=== PATIENT | male | born 1950 | race Caucasian/White ===

== ENCOUNTER 2020-11-21 04:43 | Inpatient (IN) | payer OTHER ==
[2020-11-21] MEDS ORDERED: ACETAMINOPHEN 1000 MG/100 ML VIAL (NON FORMULARY) IVPB ONE (05:53)
[2020-11-21] MEDS ORDERED: SODIUM CHLORIDE 0.9% 500 ML INFUS.BAG IV ONE (05:53)
[2020-11-21] MEDS ORDERED: ACETAMINOPHEN INJECTION 100 ML IVPB ONE (06:11)
[2020-11-21 06:44] LABS: VENOUS BASE EXCESS -5.1 mmol/L (-2-2); VENOUS O2 SATURATION 37.6 % (70-80); VENOUS PCO2 41.1 mmHg (38-52); VENOUS PH 7.319 (7.310-7.410)
[2020-11-21 06:51] LABS: BASO % 0.7 % (0-2.0); HEMATOCRIT 42.3 % (35.4-49); HEMOGLOBIN 14.7 GM/dL (11.7-16.9); LYMPH % 5.5 % (8-40); MCH 31.3 pg (25.7-33.7); MCHC 34.7 g/dl (32.0-35.9); MEAN CELL VOLUME 90.1 fl (80-96); MEAN PLT VOLUME 8.1 fl (7.5-11.1); MONO % 5.4 % (3.8-10.2); NEUT % 88.4 % (42.8-82.8); PLATELET COUNT 299 K/MM3 (134-434); RBC 4.69 M/mm3 (4.00-5.60); RDW 13.4 % (11.9-15.9); WHITE BLOOD COUNT 6.1 K/mm3 (4.0-10.0)
[2020-11-21 06:57] LABS: INR 1.25 (0.83-1.09); PROTHROMBIN TIME (PATIENT) 15.3 SEC (9.7-13.0)
[2020-11-21 07:00] LABS: ACTIVATED PTT 29.2 SECONDS (25.2-36.5)
[2020-11-21 07:03] LABS: POTASSIUM 3.6 mmol/L (3.5-5.1)
[2020-11-21 07:05] LABS: ALBUMIN 2.9 g/dl (3.4-5.0); BLOOD UREA NITROGEN 9.3 mg/dL (7-18); CALCIUM 8.1 mg/dL (8.5-10.1)
[2020-11-21 07:08] LABS: BILIRUBIN,DIRECT 0.3 mg/dL (0.0-0.2)
[2020-11-21 07:09] LABS: CREATININE 0.9 mg/dL (0.55-1.3)
[2020-11-21 07:10] LABS: BILIRUBIN,TOTAL 0.9 mg/dL (0.2-1); TOT PROT 6.8 g/dl (6.4-8.2)
[2020-11-21] MEDS ORDERED: DEXAMETHASONE SOD PHOSPHATE 20 MG/5 ML VIAL IVPB ONE (09:57)
[2020-11-21] MEDS ORDERED: ENOXAPARIN NA (PORCINE) 40 MG/0.4 ML DISP.SYRIN SQ SCH ×2 (10:00→22:00)
[2020-11-21] MEDS ORDERED: ENOXAPARIN NA (PORCINE) 40 MG/0.4 ML DISP.SYRIN SQ ONE (10:49)
[2020-11-21] MEDS ORDERED: DEXAMETHASONE SOD PHOSPHATE 10 MG/1 ML VIAL ONE (10:49)
[2020-11-21] MEDS: DEXAMETHASONE SOD PHOSPHATE 4 MG/1 ML VIAL IVPB SCH (10:59)
[2020-11-21] MEDS ORDERED: REMDESIVIR 200 MG in SODIUM CHLORIDE 210 ML IVPB ONE (15:00)
[2020-11-21] MEDS: ALBUTEROL SO4 HFA INHALER IH SCH (21:16)
[2020-11-21] MEDS: BUDESONIDE/FORMETEROL FUMARATE 160/4.5 mcg INHALER IH SCH (21:31)
[2020-11-22] MEDS: ALBUTEROL SO4 HFA INHALER IH SCH ×5 (07:11→22:03)
[2020-11-22] MEDS: ENOXAPARIN NA (PORCINE) 100 MG/1 ML DISP.SYRIN SQ SCH ×2 (09:42→23:15)
[2020-11-22] MEDS: BUDESONIDE/FORMETEROL FUMARATE 160/4.5 mcg INHALER IH SCH ×2 (09:43→23:16)
[2020-11-22] MEDS: DEXAMETHASONE SOD PHOSPHATE 4 MG/1 ML VIAL IVPB SCH (09:43)
[2020-11-22 09:52] LABS: BASO % 0.2 % (0-2.0); HEMATOCRIT 37.1 % (35.4-49); HEMOGLOBIN 12.7 GM/dL (11.7-16.9); LYMPH % 5.4 % (8-40); MCH 31.3 pg (25.7-33.7); MCHC 34.3 g/dl (32.0-35.9); MEAN CELL VOLUME 91.2 fl (80-96); MEAN PLT VOLUME 8.6 fl (7.5-11.1); MONO % 3.9 % (3.8-10.2); NEUT % 90.5 % (42.8-82.8); PLATELET COUNT 288 K/MM3 (134-434); RBC 4.07 M/mm3 (4.00-5.60); RDW 13.7 % (11.9-15.9); WHITE BLOOD COUNT 7.7 K/mm3 (4.0-10.0)
[2020-11-22 10:33] LABS: ALBUMIN 2.2 g/dl (3.4-5.0); MAGNESIUM 2.6 mg/dL (1.8-2.4)
[2020-11-22 10:36] LABS: CREATININE 0.5 mg/dL (0.55-1.3); PHOSPHOROUS 2.4 mg/dL (2.5-4.9)
[2020-11-22 10:37] LABS: BILIRUBIN,TOTAL 1.4 mg/dL (0.2-1); TOT PROT 5.7 g/dl (6.4-8.2)
[2020-11-22] MEDS: LACTATED RINGERS SOLUTION 1,000 ML/1,000 ML INFUS.BAG IV SCH (12:34)
[2020-11-22] MEDS ORDERED: REMDESIVIR 100 MG in SODIUM CHLORIDE 230 ML IVPB SCH (15:00)
[2020-11-23] MEDS: LACTATED RINGERS SOLUTION 1,000 ML/1,000 ML INFUS.BAG IV SCH (00:57)
[2020-11-23] MEDS: ALBUTEROL SO4 HFA INHALER IH SCH ×4 (08:41→21:15)
[2020-11-23 09:01] LABS: ALLENS TEST POSITIVE; ARTERIAL BLD GAS O2 SATURATION 97.4 mmHg (95-98); ARTERIAL BLOOD GAS PO2 86.5 mmHg (80-100); ARTERIAL BLOOD GAS pH 7.504 (7.350-7.450)
[2020-11-23 09:13] LABS: HEMATOCRIT 39.9 % (35.4-49); HEMOGLOBIN 13.6 GM/dL (11.7-16.9); MCH 31.5 pg (25.7-33.7); MEAN CELL VOLUME 92.7 fl (80-96); MEAN PLT VOLUME 8.2 fl (7.5-11.1); PLATELET COUNT 313 K/MM3 (134-434); RBC 4.31 M/mm3 (4.00-5.60); RDW 13.4 % (11.9-15.9); WHITE BLOOD COUNT 9.3 K/mm3 (4.0-10.0)
[2020-11-23] MEDS: ENOXAPARIN NA (PORCINE) 100 MG/1 ML DISP.SYRIN SQ SCH ×2 (10:26→21:24)
[2020-11-23] MEDS: DEXAMETHASONE SOD PHOSPHATE 4 MG/1 ML VIAL IVPB SCH (10:26)
[2020-11-23] MEDS: BUDESONIDE/FORMETEROL FUMARATE 160/4.5 mcg INHALER IH SCH ×2 (10:27→21:24)
[2020-11-23 10:38] LABS: ALBUMIN 2.3 g/dl (3.4-5.0)
[2020-11-23 10:39] LABS: BLOOD UREA NITROGEN 11.2 mg/dL (7-18); MAGNESIUM 2.2 mg/dL (1.8-2.4)
[2020-11-23 10:41] LABS: CREATININE 0.6 mg/dL (0.55-1.3)
[2020-11-23 10:43] LABS: BILIRUBIN,TOTAL 0.8 mg/dL (0.2-1); TOT PROT 6.1 g/dl (6.4-8.2)
[2020-11-23] MEDS: FAMOTIDINE 20 MG/50 ML IVPB 20 MG/50 ML MG IVPB SCH ×2 (15:18→21:15)
[2020-11-23] MEDS: REMDESIVIR 100 MG in SODIUM CHLORIDE 230 ML IVPB SCH (16:00)
[2020-11-24 08:02] LABS: BASO % 0.2 % (0-2.0); HEMOGLOBIN 13.6 GM/dL (11.7-16.9); MCH 35.5 pg (25.7-33.7); MCHC 37.7 g/dl (32.0-35.9); MEAN CELL VOLUME 94.2 fl (80-96); MONO % 2.7 % (3.8-10.2); NEUT % 93.1 % (42.8-82.8); PLATELET COUNT 252 K/MM3 (134-434); RBC 3.82 M/mm3 (4.00-5.60); RDW 13.6 % (11.9-15.9); WHITE BLOOD COUNT 6.1 K/mm3 (4.0-10.0)
[2020-11-24 08:26] LABS: CALCIUM 8.2 mg/dL (8.5-10.1)
[2020-11-24 08:27] LABS: ALBUMIN 2.3 g/dl (3.4-5.0); BLOOD UREA NITROGEN 14.6 mg/dL (7-18); MAGNESIUM 2.4 mg/dL (1.8-2.4)
[2020-11-24 08:30] LABS: CREATININE 0.6 mg/dL (0.55-1.3); PHOSPHOROUS 2.2 mg/dL (2.5-4.9)
[2020-11-24 08:32] LABS: TOT PROT 6.3 g/dl (6.4-8.2)
[2020-11-24] MEDS: FAMOTIDINE 20 MG/50 ML IVPB 20 MG/50 ML MG IVPB SCH ×2 (09:22→21:58)
[2020-11-24] MEDS: ENOXAPARIN NA (PORCINE) 100 MG/1 ML DISP.SYRIN SQ SCH ×2 (09:22→21:57)
[2020-11-24] MEDS: BUDESONIDE/FORMETEROL FUMARATE 160/4.5 mcg INHALER IH SCH ×2 (09:28→21:58)
[2020-11-24] MEDS: ALBUTEROL SO4 HFA INHALER IH SCH ×4 (09:28→21:57)
[2020-11-24 09:35] LABS: PLATELET ESTIMATE NORMAL
[2020-11-24] MEDS ORDERED: DEXAMETHASONE SOD PHOSPHATE 4 MG/1 ML VIAL IVPB SCH (10:00)
[2020-11-24] MEDS: REMDESIVIR 100 MG in SODIUM CHLORIDE 230 ML IVPB SCH (14:19)
[2020-11-24] MEDS ORDERED: TOCILIZUMAB (ACTEMRA) 200 MG/10 ML VIAL IVPB ONE (15:25)
[2020-11-24] MEDS ORDERED: SODIUM CHLORIDE IVPB ONE (15:45)
[2020-11-24] MEDS ORDERED: TOCILIZUMAB IVPB ONE (15:45)
[2020-11-24] MEDS ORDERED: PT OWN MED DRAWER 7, Y5N ONE (16:46)
[2020-11-24] MEDS: DEXAMETHASONE SOD PHOSPHATE 4 MG/1 ML VIAL IVPB SCH (21:57)
[2020-11-25 09:04] LABS: HEMATOCRIT 33.7 % (35.4-49); HEMOGLOBIN 12.6 GM/dL (11.7-16.9); MCH 35.6 pg (25.7-33.7); MCHC 37.3 g/dl (32.0-35.9); MEAN CELL VOLUME 95.3 fl (80-96); PLATELET COUNT 232 K/MM3 (134-434); RBC 3.54 M/mm3 (4.00-5.60); RDW 13.5 % (11.9-15.9); WHITE BLOOD COUNT 5.6 K/mm3 (4.0-10.0)
[2020-11-25] MEDS: ENOXAPARIN NA (PORCINE) 100 MG/1 ML DISP.SYRIN SQ SCH ×2 (09:16→21:43)
[2020-11-25] MEDS: BUDESONIDE/FORMETEROL FUMARATE 160/4.5 mcg INHALER IH SCH ×2 (09:17→21:43)
[2020-11-25] MEDS: ALBUTEROL SO4 HFA INHALER IH SCH ×4 (09:17→21:20)
[2020-11-25] MEDS: DEXAMETHASONE SOD PHOSPHATE 4 MG/1 ML VIAL IVPB SCH ×2 (09:17→21:43)
[2020-11-25] MEDS: FAMOTIDINE 20 MG/50 ML IVPB 20 MG/50 ML MG IVPB SCH (09:17)
[2020-11-25 09:33] LABS: POTASSIUM 4.7 mmol/L (3.5-5.1)
[2020-11-25 09:45] LABS: ALBUMIN 2.2 g/dl (3.4-5.0); MAGNESIUM 2.8 mg/dL (1.8-2.4)
[2020-11-25 09:47] LABS: CREATININE 0.6 mg/dL (0.55-1.3)
[2020-11-25 09:48] LABS: BILIRUBIN,TOTAL 0.7 mg/dL (0.2-1); PHOSPHOROUS 2.5 mg/dL (2.5-4.9)
[2020-11-25 09:49] LABS: TOT PROT 6.1 g/dl (6.4-8.2)
[2020-11-25 09:57] LABS: BLOOD UREA NITROGEN 18.6 mg/dL (7-18)
[2020-11-25] MEDS: REMDESIVIR 100 MG in SODIUM CHLORIDE 230 ML IVPB SCH (15:18)
[2020-11-25] MEDS ORDERED: POLYETHYLENE GLYCOL 3350 119 GM BTL PO ONE (16:01)
[2020-11-25 19:08] LABS: HEP B CORE AB, TOT Negative (Negative)
[2020-11-25] MEDS: FAMOTIDINE 20 MG TABLET PO SCH (21:43)
[2020-11-26 08:00] LABS: POTASSIUM 4.7 mmol/L (3.5-5.1)
[2020-11-26 08:07] LABS: BLOOD UREA NITROGEN 21.8 mg/dL (7-18); CALCIUM 7.8 mg/dL (8.5-10.1)
[2020-11-26 08:08] LABS: ALBUMIN 2.2 g/dl (3.4-5.0)
[2020-11-26 08:11] LABS: CREATININE 0.7 mg/dL (0.55-1.3)
[2020-11-26 08:12] LABS: BILIRUBIN,TOTAL 0.9 mg/dL (0.2-1); TOT PROT 6.3 g/dl (6.4-8.2)
[2020-11-26] MEDS: ALBUTEROL SO4 HFA INHALER IH SCH ×4 (08:30→21:24)
[2020-11-26 09:07] LABS: HEMATOCRIT 37.5 % (35.4-49); HEMOGLOBIN 12.8 GM/dL (11.7-16.9); MCH 30.7 pg (25.7-33.7); MCHC 34.2 g/dl (32.0-35.9); MEAN CELL VOLUME 89.9 fl (80-96); MEAN PLT VOLUME 8.5 fl (7.5-11.1); PLATELET COUNT 280 K/MM3 (134-434); RBC 4.18 M/mm3 (4.00-5.60); RDW 13.6 % (11.9-15.9); WHITE BLOOD COUNT 9.7 K/mm3 (4.0-10.0)
[2020-11-26] MEDS ORDERED: PT OWN MED DRAWER 7, Y5N ONE (10:12)
[2020-11-26] MEDS: FAMOTIDINE 20 MG TABLET PO SCH ×2 (10:33→22:10)
[2020-11-26] MEDS: DOCUSATE SODIUM 100 MG CAPSULE (FP) PO SCH ×2 (10:34→22:09)
[2020-11-26] MEDS: ENOXAPARIN NA (PORCINE) 100 MG/1 ML DISP.SYRIN SQ SCH ×2 (10:34→22:09)
[2020-11-26] MEDS: DEXAMETHASONE SOD PHOSPHATE 4 MG/1 ML VIAL IVPB SCH ×2 (10:35→22:09)
[2020-11-26] MEDS: BUDESONIDE/FORMETEROL FUMARATE 160/4.5 mcg INHALER IH SCH ×2 (10:36→22:10)
[2020-11-26] MEDS: POLYETHYLENE GLYCOL 3350 119 GM BTL PO SCH ×2 (10:36→11:02)
[2020-11-27 07:13] LABS: HEMATOCRIT 38.8 % (35.4-49); MCH 34.2 pg (25.7-33.7); MCHC 36.2 g/dl (32.0-35.9); MEAN CELL VOLUME 94.4 fl (80-96); MEAN PLT VOLUME 8.3 fl (7.5-11.1); PLATELET COUNT 287 K/MM3 (134-434); RBC 4.11 M/mm3 (4.00-5.60); RDW 13.5 % (11.9-15.9); WHITE BLOOD COUNT 10.6 K/mm3 (4.0-10.0)
[2020-11-27 07:37] LABS: POTASSIUM 4.8 mmol/L (3.5-5.1)
[2020-11-27 07:39] LABS: ALBUMIN 2.4 g/dl (3.4-5.0); BLOOD UREA NITROGEN 20.8 mg/dL (7-18); CALCIUM 8.2 mg/dL (8.5-10.1)
[2020-11-27 07:43] LABS: CREATININE 0.6 mg/dL (0.55-1.3)
[2020-11-27 07:44] LABS: BILIRUBIN,TOTAL 0.7 mg/dL (0.2-1); TOT PROT 6.4 g/dl (6.4-8.2)
[2020-11-27] MEDS: ALBUTEROL SO4 HFA INHALER IH SCH ×3 (09:03→17:09)
[2020-11-27] MEDS: DOCUSATE SODIUM 100 MG CAPSULE (FP) PO SCH ×2 (10:30→21:05)
[2020-11-27] MEDS: ENOXAPARIN NA (PORCINE) 100 MG/1 ML DISP.SYRIN SQ SCH ×2 (10:30→21:05)
[2020-11-27] MEDS: FAMOTIDINE 20 MG TABLET PO SCH ×2 (10:31→21:05)
[2020-11-27] MEDS: DEXAMETHASONE SOD PHOSPHATE 4 MG/1 ML VIAL IVPB SCH ×2 (10:31→21:05)
[2020-11-27] MEDS: BUDESONIDE/FORMETEROL FUMARATE 160/4.5 mcg INHALER IH SCH ×2 (10:34→21:06)
[2020-11-27] MEDS: POLYETHYLENE GLYCOL 3350 119 GM BTL PO SCH (10:57)
[2020-11-28 06:56] LABS: HEMATOCRIT 43.2 % (35.4-49); HEMOGLOBIN 15.3 GM/dL (11.7-16.9); MCH 32.8 pg (25.7-33.7); MCHC 35.5 g/dl (32.0-35.9); MEAN CELL VOLUME 92.5 fl (80-96); MEAN PLT VOLUME 7.8 fl (7.5-11.1); PLATELET COUNT 283 K/MM3 (134-434); RBC 4.67 M/mm3 (4.00-5.60); RDW 13.5 % (11.9-15.9); WHITE BLOOD COUNT 12.4 K/mm3 (4.0-10.0)
[2020-11-28 07:45] LABS: POTASSIUM 4.6 mmol/L (3.5-5.1)
[2020-11-28 08:02] LABS: CALCIUM 8.2 mg/dL (8.5-10.1)
[2020-11-28 08:04] LABS: CREATININE 0.6 mg/dL (0.55-1.3)
[2020-11-28] MEDS: DEXAMETHASONE SOD PHOSPHATE 4 MG/1 ML VIAL IVPB SCH (09:09)
[2020-11-28] MEDS: DOCUSATE SODIUM 100 MG CAPSULE (FP) PO SCH ×2 (09:09→21:29)
[2020-11-28] MEDS: FAMOTIDINE 20 MG TABLET PO SCH ×2 (09:09→21:29)
[2020-11-28] MEDS: ENOXAPARIN NA (PORCINE) 100 MG/1 ML DISP.SYRIN SQ SCH ×2 (09:09→21:28)
[2020-11-28] MEDS: ALBUTEROL SO4 HFA INHALER IH SCH ×5 (09:11→21:30)
[2020-11-28] MEDS: BUDESONIDE/FORMETEROL FUMARATE 160/4.5 mcg INHALER IH SCH ×2 (09:11→21:30)
[2020-11-28] MEDS: POLYETHYLENE GLYCOL 3350 119 GM BTL PO SCH (10:33)
[2020-11-29 07:20] LABS: BASO % 0.2 % (0-2.0); HEMOGLOBIN 15.5 GM/dL (11.7-16.9); LYMPH % 2.8 % (8-40); MCHC 38.8 g/dl (32.0-35.9); MEAN CELL VOLUME 92.8 fl (80-96); MEAN PLT VOLUME 7.8 fl (7.5-11.1); MONO % 1.7 % (3.8-10.2); NEUT % 94.3 % (42.8-82.8); PLATELET COUNT 266 K/MM3 (134-434); RBC 4.31 M/mm3 (4.00-5.60); RDW 13.3 % (11.9-15.9); WHITE BLOOD COUNT 13.8 K/mm3 (4.0-10.0)
[2020-11-29 07:29] LABS: POTASSIUM 4.5 mmol/L (3.5-5.1)
[2020-11-29 07:32] LABS: ALBUMIN 2.6 g/dl (3.4-5.0); BLOOD UREA NITROGEN 15.5 mg/dL (7-18)
[2020-11-29 07:35] LABS: CREATININE 0.7 mg/dL (0.55-1.3); PHOSPHOROUS 2.3 mg/dL (2.5-4.9)
[2020-11-29 07:36] LABS: BILIRUBIN,TOTAL 0.9 mg/dL (0.2-1); TOT PROT 6.5 g/dl (6.4-8.2)
[2020-11-29] MEDS ORDERED: DEXAMETHASONE SOD PHOSPHATE 4 MG/1 ML VIAL IVPB SCH (10:00)
[2020-11-29] MEDS: ENOXAPARIN NA (PORCINE) 100 MG/1 ML DISP.SYRIN SQ SCH ×2 (12:31→21:43)
[2020-11-29] MEDS: MUPIROCIN 2% TOPICAL OINTMENT FOR DECOLONIZATION NS SCH (12:32)
[2020-11-29] MEDS ORDERED: PT OWN MED DRAWER 7, Y5N ONE (12:42)
[2020-11-29] MEDS: ALBUTEROL SO4 HFA INHALER IH SCH ×3 (12:47→16:20)
[2020-11-29] MEDS: AMINO ACIDS 4.25%/D5W 1,000 ML IV SCH (12:48)
[2020-11-29] MEDS: POLYETHYLENE GLYCOL 3350 119 GM BTL PO SCH (12:48)
[2020-11-29] MEDS: DOCUSATE SODIUM 100 MG CAPSULE (FP) PO SCH ×2 (12:48→21:43)
[2020-11-29] MEDS: FAMOTIDINE 20 MG TABLET PO SCH ×2 (12:48→21:44)
[2020-11-29] MEDS: BUDESONIDE/FORMETEROL FUMARATE 160/4.5 mcg INHALER IH SCH ×2 (12:49→21:44)
[2020-11-29] MEDS ORDERED: FUROSEMIDE 40 MG/4 ML INJECTABLE VIAL IVPUSH ONE (13:10)
[2020-11-29 13:50] LABS: ARTERIAL BLD GAS O2 SATURATION 97.6 mmHg (95-98); ARTERIAL BLOOD GAS BASE EXCESS 0.3 mmol/L (-2-2); ARTERIAL BLOOD GAS PO2 92.2 mmHg (80-100); ARTERIAL BLOOD GAS pH 7.482 (7.350-7.450)
[2020-11-29 13:51] LABS: ALLENS TEST POSITIVE
[2020-11-29] MEDS: CHLORHEXIDINE GLUCONATE 4% CLEANSER FOR DECOLONIZATION TP SCH (21:44)
[2020-11-29] MEDS ORDERED: TOCILIZUMAB (ACTEMRA) 200 MG/10 ML VIAL IVPB ONE (23:11)
[2020-11-30] MEDS: ALBUTEROL SO4 HFA INHALER IH SCH ×4 (09:00→19:51)
[2020-11-30] MEDS: ENOXAPARIN NA (PORCINE) 100 MG/1 ML DISP.SYRIN SQ SCH ×2 (10:49→21:03)
[2020-11-30] MEDS: DEXAMETHASONE SOD PHOSPHATE 4 MG/1 ML VIAL IVPB SCH (10:49)
[2020-11-30] MEDS: DOCUSATE SODIUM 100 MG CAPSULE (FP) PO SCH ×2 (10:49→21:00)
[2020-11-30] MEDS: MUPIROCIN 2% TOPICAL OINTMENT FOR DECOLONIZATION NS SCH ×2 (10:55→21:03)
[2020-11-30] MEDS: POLYETHYLENE GLYCOL 3350 119 GM BTL PO SCH (10:55)
[2020-11-30] MEDS: BUDESONIDE/FORMETEROL FUMARATE 160/4.5 mcg INHALER IH SCH ×2 (11:03→21:03)
[2020-11-30] MEDS: FAMOTIDINE 20 MG TABLET PO SCH ×2 (11:12→21:03)
[2020-11-30] MEDS: AMINO ACIDS 4.25%/D5W 1,000 ML IV SCH (12:51)
[2020-11-30 13:45] LABS: EOS % 0.4 % (0-4.5); HEMATOCRIT 43.2 % (35.4-49); HEMOGLOBIN 14.9 GM/dL (11.7-16.9); LYMPH % 0.6 % (8-40); MCH 30.8 pg (25.7-33.7); MCHC 34.4 g/dl (32.0-35.9); MEAN CELL VOLUME 89.4 fl (80-96); MEAN PLT VOLUME 7.8 fl (7.5-11.1); MONO % 0.6 % (3.8-10.2); NEUT % 97.4 % (42.8-82.8); PLATELET COUNT 183 K/MM3 (134-434); RBC 4.84 M/mm3 (4.00-5.60); RDW 13.3 % (11.9-15.9); WHITE BLOOD COUNT 19.5 K/mm3 (4.0-10.0)
[2020-11-30 14:09] LABS: POTASSIUM 4.3 mmol/L (3.5-5.1)
[2020-11-30 14:11] LABS: ALBUMIN 2.2 g/dl (3.4-5.0); CALCIUM 7.9 mg/dL (8.5-10.1)
[2020-11-30 14:12] LABS: MAGNESIUM 2.4 mg/dL (1.8-2.4)
[2020-11-30 14:15] LABS: CREATININE 0.7 mg/dL (0.55-1.3); PHOSPHOROUS 2.3 mg/dL (2.5-4.9)
[2020-11-30 14:16] LABS: BILIRUBIN,TOTAL 0.8 mg/dL (0.2-1); TOT PROT 5.6 g/dl (6.4-8.2)
[2020-11-30 14:36] LABS: ANISOCYTOSIS 0; MACROCYTOSIS 0; PLATELET ESTIMATE NORMAL
[2020-11-30] MEDS: CHLORHEXIDINE GLUCONATE 4% CLEANSER FOR DECOLONIZATION TP SCH (21:03)
[2020-12-01 06:48] LABS: HEMATOCRIT 42.7 % (35.4-49); HEMOGLOBIN 14.4 GM/dL (11.7-16.9); MCH 30.3 pg (25.7-33.7); MCHC 33.7 g/dl (32.0-35.9); MEAN CELL VOLUME 90.1 fl (80-96); PLATELET COUNT 179 K/MM3 (134-434); RBC 4.74 M/mm3 (4.00-5.60); RDW 13.2 % (11.9-15.9); WHITE BLOOD COUNT 15.2 K/mm3 (4.0-10.0)
[2020-12-01 06:57] LABS: POTASSIUM 3.8 mmol/L (3.5-5.1)
[2020-12-01 06:59] LABS: ALBUMIN 2.2 g/dl (3.4-5.0); CALCIUM 7.7 mg/dL (8.5-10.1)
[2020-12-01 07:00] LABS: BLOOD UREA NITROGEN 18.3 mg/dL (7-18); MAGNESIUM 2.2 mg/dL (1.8-2.4)
[2020-12-01 07:03] LABS: CREATININE 0.6 mg/dL (0.55-1.3); PHOSPHOROUS 2.2 mg/dL (2.5-4.9)
[2020-12-01 07:04] LABS: BILIRUBIN,TOTAL 0.8 mg/dL (0.2-1); TOT PROT 5.5 g/dl (6.4-8.2)
[2020-12-01] MEDS ORDERED: PT OWN MED DRAWER 7, Y5N ONE (08:40)
[2020-12-01] MEDS: ALBUTEROL SO4 HFA INHALER IH SCH ×3 (09:00→16:24)
[2020-12-01] MEDS: FAMOTIDINE 20 MG TABLET PO SCH ×2 (09:37→22:39)
[2020-12-01] MEDS: DEXAMETHASONE SOD PHOSPHATE 4 MG/1 ML VIAL IVPB SCH (09:37)
[2020-12-01] MEDS: MUPIROCIN 2% TOPICAL OINTMENT FOR DECOLONIZATION NS SCH ×2 (09:38→22:39)
[2020-12-01] MEDS: ENOXAPARIN NA (PORCINE) 100 MG/1 ML DISP.SYRIN SQ SCH ×2 (09:38→22:39)
[2020-12-01] MEDS: DOCUSATE SODIUM 100 MG CAPSULE (FP) PO SCH ×2 (09:38→22:39)
[2020-12-01] MEDS: POLYETHYLENE GLYCOL 3350 119 GM BTL PO SCH (09:39)
[2020-12-01] MEDS ORDERED: POTASSIUM PHOSPHATE 15 MM in SODIUM CHLORIDE 250 ML IVPB ONE (10:00)
[2020-12-01] MEDS: BUDESONIDE/FORMETEROL FUMARATE 160/4.5 mcg INHALER IH SCH ×2 (11:00→22:40)
[2020-12-01] MEDS: AMINO ACIDS 4.25%/D5W 1,000 ML IV SCH (13:00)
[2020-12-01] MEDS ORDERED: FUROSEMIDE 40 MG/4 ML INJECTABLE VIAL IVPUSH ONE (15:43)
[2020-12-01] MEDS: CHLORHEXIDINE GLUCONATE 4% CLEANSER FOR DECOLONIZATION TP SCH (22:39)
[2020-12-02 06:54] LABS: BASO % 0.4 % (0-2.0); EOS % 0.9 % (0-4.5); HEMATOCRIT 42.6 % (35.4-49); HEMOGLOBIN 14.8 GM/dL (11.7-16.9); LYMPH % 1.6 % (8-40); MCHC 34.6 g/dl (32.0-35.9); MEAN CELL VOLUME 89.7 fl (80-96); MONO % 1.2 % (3.8-10.2); NEUT % 95.9 % (42.8-82.8); PLATELET COUNT 192 K/MM3 (134-434); RBC 4.76 M/mm3 (4.00-5.60); RDW 13.5 % (11.9-15.9)
[2020-12-02 07:21] LABS: CALCIUM 8.3 mg/dL (8.5-10.1)
[2020-12-02 07:22] LABS: BLOOD UREA NITROGEN 20.4 mg/dL (7-18); MAGNESIUM 2.3 mg/dL (1.8-2.4)
[2020-12-02 07:25] LABS: CREATININE 0.6 mg/dL (0.55-1.3); PHOSPHOROUS 2.3 mg/dL (2.5-4.9)
[2020-12-02] MEDS ORDERED: PT OWN MED DRAWER 7, Y5N ONE (09:29)
[2020-12-02] MEDS: DEXAMETHASONE SOD PHOSPHATE 4 MG/1 ML VIAL IVPB SCH (09:31)
[2020-12-02] MEDS: DOCUSATE SODIUM 100 MG CAPSULE (FP) PO SCH ×2 (09:31→21:33)
[2020-12-02] MEDS: ENOXAPARIN NA (PORCINE) 100 MG/1 ML DISP.SYRIN SQ SCH ×2 (09:31→21:33)
[2020-12-02] MEDS: FAMOTIDINE 20 MG TABLET PO SCH ×2 (09:32→21:33)
[2020-12-02] MEDS: MUPIROCIN 2% TOPICAL OINTMENT FOR DECOLONIZATION NS SCH ×2 (09:32→21:33)
[2020-12-02] MEDS: BUDESONIDE/FORMETEROL FUMARATE 160/4.5 mcg INHALER IH SCH ×2 (09:32→21:33)
[2020-12-02 10:24] LABS: ANISOCYTOSIS 0; HELMET CELLS 0; HOWELL-JOLLY BODIES 0; MACROCYTOSIS 0; OVALOCYTE 0; PLATELET ESTIMATE NORMAL; ROULEAU 0; SICKELED CELLS 0; TARGET CELLS 0; TEAR DROP CELLS 0; TOXIC GRANULATION 0
[2020-12-02] MEDS: POLYETHYLENE GLYCOL 3350 119 GM BTL PO SCH (14:41)
[2020-12-02] MEDS: AMINO ACIDS 4.25%/D5W 1,000 ML IV SCH (14:42)
[2020-12-02] MEDS: CHLORHEXIDINE GLUCONATE 4% CLEANSER FOR DECOLONIZATION TP SCH (21:33)
[2020-12-03] MEDS ORDERED: PT OWN MED DRAWER 7, Y5N ONE (06:57)
[2020-12-03 08:16] LABS: HEMOGLOBIN 14.7 GM/dL (11.7-16.9); MCH 31.1 pg (25.7-33.7); MCHC 34.1 g/dl (32.0-35.9); MEAN CELL VOLUME 91.2 fl (80-96); MEAN PLT VOLUME 8.8 fl (7.5-11.1); PLATELET COUNT 174 K/MM3 (134-434); RBC 4.71 M/mm3 (4.00-5.60); RDW 13.6 % (11.9-15.9); WHITE BLOOD COUNT 16.2 K/mm3 (4.0-10.0)
[2020-12-03 08:31] LABS: POTASSIUM 4.2 mmol/L (3.5-5.1)
[2020-12-03 08:36] LABS: BLOOD UREA NITROGEN 19.3 mg/dL (7-18); CALCIUM 8.1 mg/dL (8.5-10.1); MAGNESIUM 2.2 mg/dL (1.8-2.4)
[2020-12-03 08:38] LABS: CREATININE 0.6 mg/dL (0.55-1.3)
[2020-12-03] MEDS: DOCUSATE SODIUM 100 MG CAPSULE (FP) PO SCH ×2 (09:00→21:06)
[2020-12-03] MEDS: DEXAMETHASONE SOD PHOSPHATE 4 MG/1 ML VIAL IVPB SCH (09:01)
[2020-12-03] MEDS: BUDESONIDE/FORMETEROL FUMARATE 160/4.5 mcg INHALER IH SCH ×2 (09:02→21:07)
[2020-12-03] MEDS: POLYETHYLENE GLYCOL 3350 119 GM BTL PO SCH (09:02)
[2020-12-03] MEDS: FAMOTIDINE 20 MG TABLET PO SCH ×2 (09:02→21:07)
[2020-12-03] MEDS: ENOXAPARIN NA (PORCINE) 100 MG/1 ML DISP.SYRIN SQ SCH ×2 (09:02→21:07)
[2020-12-03] MEDS: MUPIROCIN 2% TOPICAL OINTMENT FOR DECOLONIZATION NS SCH ×2 (09:03→21:05)
[2020-12-03] MEDS: ALBUTEROL SO4 HFA INHALER IH SCH ×3 (09:03→21:21)
[2020-12-03] MEDS: AMINO ACIDS 4.25%/D5W 1,000 ML IV SCH (11:44)
[2020-12-03] MEDS: CHLORHEXIDINE GLUCONATE 4% CLEANSER FOR DECOLONIZATION TP SCH (21:06)
[2020-12-04 07:26] LABS: BASO % 0.9 % (0-2.0); EOS % 0.9 % (0-4.5); HEMATOCRIT 43.3 % (35.4-49); LYMPH % 1.9 % (8-40); MCH 31.5 pg (25.7-33.7); MCHC 34.7 g/dl (32.0-35.9); MEAN CELL VOLUME 90.8 fl (80-96); MEAN PLT VOLUME 8.5 fl (7.5-11.1); MONO % 2.3 % (3.8-10.2); PLATELET COUNT 198 K/MM3 (134-434); RBC 4.76 M/mm3 (4.00-5.60); RDW 13.4 % (11.9-15.9); WHITE BLOOD COUNT 19.3 K/mm3 (4.0-10.0)
[2020-12-04] MEDS: ALBUTEROL SO4 HFA INHALER IH SCH ×5 (07:46→21:59)
[2020-12-04 08:12] LABS: POTASSIUM 4.3 mmol/L (3.5-5.1)
[2020-12-04 08:14] LABS: BLOOD UREA NITROGEN 21.3 mg/dL (7-18)
[2020-12-04 08:17] LABS: CALCIUM 8.6 mg/dL (8.5-10.1); CREATININE 0.5 mg/dL (0.55-1.3)
[2020-12-04 08:21] LABS: PHOSPHOROUS 3.2 mg/dL (2.5-4.9)
[2020-12-04 08:23] LABS: MAGNESIUM 2.2 mg/dL (1.8-2.4)
[2020-12-04] MEDS: ENOXAPARIN NA (PORCINE) 100 MG/1 ML DISP.SYRIN SQ SCH ×2 (09:14→22:00)
[2020-12-04] MEDS: DEXAMETHASONE SOD PHOSPHATE 4 MG/1 ML VIAL IVPB SCH (09:14)
[2020-12-04] MEDS: DOCUSATE SODIUM 100 MG CAPSULE (FP) PO SCH ×2 (09:16→22:01)
[2020-12-04] MEDS: POLYETHYLENE GLYCOL 3350 119 GM BTL PO SCH (09:16)
[2020-12-04] MEDS: FAMOTIDINE 20 MG TABLET PO SCH ×2 (09:16→22:00)
[2020-12-04] MEDS: BUDESONIDE/FORMETEROL FUMARATE 160/4.5 mcg INHALER IH SCH ×2 (09:32→22:01)
[2020-12-04 10:18] LABS: ANISOCYTOSIS 0; HELMET CELLS 0; HOWELL-JOLLY BODIES 0; MACROCYTOSIS 0; OVALOCYTE 0; PLATELET ESTIMATE NORMAL; ROULEAU 0; SICKELED CELLS 0; TARGET CELLS 0; TEAR DROP CELLS 0; TOXIC GRANULATION 0
[2020-12-04] MEDS: AMINO ACIDS 4.25%/D5W 1,000 ML IV SCH (11:34)
[2020-12-04 16:25] VITALS: BMI 25.1
[2020-12-04] MEDS: CHLORHEXIDINE GLUCONATE 4% CLEANSER FOR DECOLONIZATION TP SCH (22:01)
[2020-12-05 07:31] LABS: BASO % 0.4 % (0-2.0); EOS % 0.1 % (0-4.5); HEMATOCRIT 46.5 % (35.4-49); HEMOGLOBIN 16.1 GM/dL (11.7-16.9); LYMPH % 1.8 % (8-40); MCH 31.4 pg (25.7-33.7); MCHC 34.7 g/dl (32.0-35.9); MEAN CELL VOLUME 90.6 fl (80-96); MEAN PLT VOLUME 8.9 fl (7.5-11.1); MONO % 3.2 % (3.8-10.2); NEUT % 94.5 % (42.8-82.8); PLATELET COUNT 218 K/MM3 (134-434); RBC 5.13 M/mm3 (4.00-5.60); RDW 14.1 % (11.9-15.9); WHITE BLOOD COUNT 20.5 K/mm3 (4.0-10.0)
[2020-12-05 07:42] LABS: POTASSIUM 4.5 mmol/L (3.5-5.1)
[2020-12-05 07:47] LABS: CALCIUM 8.6 mg/dL (8.5-10.1); MAGNESIUM 2.5 mg/dL (1.8-2.4)
[2020-12-05 07:51] LABS: CREATININE 0.7 mg/dL (0.55-1.3); PHOSPHOROUS 3.2 mg/dL (2.5-4.9)
[2020-12-05] MEDS: ENOXAPARIN NA (PORCINE) 100 MG/1 ML DISP.SYRIN SQ SCH ×2 (10:01→23:36)
[2020-12-05] MEDS: DOCUSATE SODIUM 100 MG CAPSULE (FP) PO SCH ×2 (10:03→23:36)
[2020-12-05] MEDS: BUDESONIDE/FORMETEROL FUMARATE 160/4.5 mcg INHALER IH SCH ×2 (10:03→23:37)
[2020-12-05] MEDS: POLYETHYLENE GLYCOL 3350 119 GM BTL PO SCH (10:03)
[2020-12-05] MEDS: FAMOTIDINE 20 MG TABLET PO SCH ×2 (10:03→23:36)
[2020-12-05] MEDS: ALBUTEROL SO4 HFA INHALER IH SCH ×4 (10:03→20:42)
[2020-12-05] MEDS: AMINO ACIDS 4.25%/D5W 1,000 ML IV SCH (12:06)
[2020-12-05] MEDS ORDERED: MORPHINE SULFATE 2 MG/ML VIAL IVPUSH ONE (12:30)
[2020-12-05 12:43] LABS: ANISOCYTOSIS 0; MACROCYTOSIS 0; PLATELET ESTIMATE NORMAL
[2020-12-05] MEDS: MORPHINE SULFATE 2 MG/ML VIAL IVPUSH PRN ×2 (17:43→22:02)
[2020-12-05] MEDS: CHLORHEXIDINE GLUCONATE 4% CLEANSER FOR DECOLONIZATION TP SCH (23:37)
[2020-12-06] MEDS: MORPHINE SULFATE 2 MG/ML VIAL IVPUSH PRN (01:57)
[2020-12-06 05:31] LABS: ALLENS TEST NEGATIVE; ARTERIAL BLD GAS O2 SATURATION 90.5 mmHg (95-98); ARTERIAL BLOOD GAS BASE EXCESS 1.1 mmol/L (-2-2); ARTERIAL BLOOD GAS PO2 63.6 mmHg (80-100); ARTERIAL BLOOD GAS pH 7.332 (7.350-7.450)
[2020-12-06 05:32] LABS: VENT MODE SPONTANEOUS; VENT RATE 26
[2020-12-06 07:15] LABS: BASO % 1.2 % (0-2.0); HEMATOCRIT 49.3 % (35.4-49); LYMPH % 1.4 % (8-40); MCH 30.4 pg (25.7-33.7); MCHC 32.5 g/dl (32.0-35.9); MEAN CELL VOLUME 93.6 fl (80-96); MEAN PLT VOLUME 9.5 fl (7.5-11.1); MONO % 2.7 % (3.8-10.2); NEUT % 94.7 % (42.8-82.8); PLATELET COUNT 194 K/MM3 (134-434); RBC 5.27 M/mm3 (4.00-5.60)
[2020-12-06 07:30] LABS: POTASSIUM 4.8 mmol/L (3.5-5.1)
[2020-12-06 07:31] LABS: BLOOD UREA NITROGEN 39.7 mg/dL (7-18); CALCIUM 8.8 mg/dL (8.5-10.1)
[2020-12-06 07:32] LABS: MAGNESIUM 2.7 mg/dL (1.8-2.4)
[2020-12-06 07:35] LABS: CREATININE 0.8 mg/dL (0.55-1.3)
[2020-12-06] MEDS: LACTATED RINGERS SOLUTION 1,000 ML/1,000 ML INFUS.BAG IV SCH (08:37)
[2020-12-06] MEDS: ALBUTEROL SO4 HFA INHALER IH SCH ×4 (08:38→22:29)
[2020-12-06 08:40] LABS: WHITE BLOOD COUNT 33.9 K/mm3 (4.0-10.0)
[2020-12-06] MEDS ORDERED: LACTATED RINGERS SOLUTION 1000 ML INFUS.BAG IV ONE (08:45)
[2020-12-06] MEDS: ENOXAPARIN NA (PORCINE) 100 MG/1 ML DISP.SYRIN SQ SCH ×2 (09:53→22:28)
[2020-12-06] MEDS: FAMOTIDINE 20 MG TABLET PO SCH ×2 (09:59→22:29)
[2020-12-06] MEDS: DOCUSATE SODIUM 100 MG CAPSULE (FP) PO SCH ×2 (09:59→22:29)
[2020-12-06] MEDS: POLYETHYLENE GLYCOL 3350 119 GM BTL PO SCH (10:00)
[2020-12-06] MEDS: BUDESONIDE/FORMETEROL FUMARATE 160/4.5 mcg INHALER IH SCH ×2 (10:00→22:30)
[2020-12-06 13:02] LABS: OVALOCYTE 1+
[2020-12-06 13:03] LABS: PLATELET ESTIMATE NORMAL
[2020-12-06] MEDS ORDERED: DEXTROSE 5%-WATER 100 ML IVPB ONE ×2 (13:23→17:46)
[2020-12-06] MEDS ORDERED: CEFEPIME HCL 1 GM VIAL (RESTRICTED TO ID) ONE ×2 (13:23→17:45)
[2020-12-06] MEDS: CEFEPIME 1 GM in DEXTROSE 5%-WATER 1 GM/100 ML BAG IVPB SCH ×2 (13:24→17:55)
[2020-12-06] MEDS: VANCOMYCIN 1 GRAM (PRE-DOCKED) 1,000 MG/250 ML BAG IVPB SCH (14:33)
[2020-12-06] MEDS ORDERED: MULTIVIT INJECTION ADULT 10 ML in AMINO ACIDS 4.25%/D5W 1,000 ML IV ONE (15:15)
[2020-12-06 16:36] LABS: PH,URINE 5.5 (5.0-8.0); URINE APPEARANCE CLOUDY; URINE BILIRUBIN NEGATIVE (NEGATIVE); URINE COLOR DK YELLOW; URINE GLUCOSE (UA) TRACE (NEGATIVE); URINE KETONE NEGATIVE (NEGATIVE); URINE LEUK ESTERASE NEGATIVE (NEGATIVE); URINE NITRITE NEGATIVE (NEGATIVE); URINE PROTEIN 1+ (NEGATIVE)
[2020-12-06] MEDS ORDERED: PT OWN MED DRAWER 7, Y5N ONE (17:45)
[2020-12-06 18:13] LABS: URINE BACTERIA 37.2 /uL (0-1359); URINE RBC 18.6 /uL (0-23.9); URINE WBC 21.9 /uL (0-25.8)
[2020-12-06] MEDS ORDERED: SODIUM CHLORIDE 500 ML IV STA (20:25)
[2020-12-06] MEDS: CHLORHEXIDINE GLUCONATE 4% CLEANSER FOR DECOLONIZATION TP SCH (22:28)
[2020-12-07] MEDS ORDERED: DEXTROSE 5%-WATER 100 ML IVPB ONE ×3 (01:34→17:46)
[2020-12-07] MEDS ORDERED: CEFEPIME HCL 1 GM VIAL (RESTRICTED TO ID) ONE ×3 (01:34→17:46)
[2020-12-07] MEDS: CEFEPIME 1 GM in DEXTROSE 5%-WATER 1 GM/100 ML BAG IVPB SCH ×2 (01:37→10:44)
[2020-12-07] MEDS ORDERED: AMIODARONE HCL 150 MG/3 ML VIAL IVPUSH ONE (02:57)
[2020-12-07] MEDS ORDERED: DIGOXIN 0.5 MG/2 ML AMPUL IVPUSH ONE (03:39)
[2020-12-07] MEDS ORDERED: LORazepam 2 MG/ML SDV VIAL ONE (04:03)
[2020-12-07] MEDS ORDERED: LACTATED RINGERS SOLUTION 1000 ML INFUS.BAG IV ONE (04:17)
[2020-12-07] MEDS ORDERED: LORazepam 2 MG/ML SDV VIAL IVPUSH ONE (04:21)
[2020-12-07 06:17] LABS: ARTERIAL BLD GAS O2 SATURATION 93.8 mmHg (95-98); ARTERIAL BLOOD GAS BASE EXCESS 2.6 mmol/L (-2-2); ARTERIAL BLOOD GAS PO2 88.2 mmHg (80-100)
[2020-12-07 06:23] LABS: ALLENS TEST POSITIVE
[2020-12-07 06:24] LABS: VENT MODE IPAP 16/EPAP10; VENT RATE 26
[2020-12-07 06:27] LABS: ARTERIAL BLOOD GAS pH 7.181 (7.350-7.450)
[2020-12-07 07:09] LABS: BASO % 0.1 % (0-2.0); HEMATOCRIT 41.3 % (35.4-49); HEMOGLOBIN 13.4 GM/dL (11.7-16.9); LYMPH % 2.6 % (8-40); MCH 30.6 pg (25.7-33.7); MCHC 32.4 g/dl (32.0-35.9); MEAN CELL VOLUME 94.7 fl (80-96); MEAN PLT VOLUME 8.5 fl (7.5-11.1); MONO % 5.2 % (3.8-10.2); NEUT % 92.1 % (42.8-82.8); PLATELET COUNT 163 K/MM3 (134-434); RBC 4.37 M/mm3 (4.00-5.60); RDW 13.8 % (11.9-15.9); WHITE BLOOD COUNT 21.1 K/mm3 (4.0-10.0)
[2020-12-07 07:46] LABS: POTASSIUM 4.8 mmol/L (3.5-5.1)
[2020-12-07 08:10] LABS: BLOOD UREA NITROGEN 38.3 mg/dL (7-18)
[2020-12-07 08:13] LABS: CREATININE 0.7 mg/dL (0.55-1.3)
[2020-12-07 08:14] LABS: CALCIUM 7.8 mg/dL (8.5-10.1); MAGNESIUM 2.6 mg/dL (1.8-2.4); PHOSPHOROUS 2.9 mg/dL (2.5-4.9)
[2020-12-07] MEDS: LACTATED RINGERS SOLUTION 1,000 ML/1,000 ML INFUS.BAG IV SCH (09:35)
[2020-12-07] MEDS: ALBUTEROL SO4 HFA INHALER IH SCH ×4 (09:37→20:00)
[2020-12-07] MEDS: DOCUSATE SODIUM 100 MG CAPSULE (FP) PO SCH (09:37)
[2020-12-07] MEDS: BUDESONIDE/FORMETEROL FUMARATE 160/4.5 mcg INHALER IH SCH (09:38)
[2020-12-07] MEDS: FAMOTIDINE 20 MG TABLET PO SCH (09:38)
[2020-12-07] MEDS: POLYETHYLENE GLYCOL 3350 119 GM BTL PO SCH (09:38)
[2020-12-07] MEDS: ENOXAPARIN NA (PORCINE) 100 MG/1 ML DISP.SYRIN SQ SCH (09:39)
[2020-12-07 09:57] LABS: ANISOCYTOSIS 1+; MACROCYTOSIS 0; OVALOCYTE 1+; PLATELET ESTIMATE NORMAL
[2020-12-07] MEDS: VANCOMYCIN 1 GRAM (PRE-DOCKED) 1,000 MG/250 ML BAG IVPB SCH (12:48)
[2020-12-07] MEDS ORDERED: LACTATED RINGERS SOLUTION 1,000 ML/1,000 ML INFUS.BAG IV STA (13:24)
[2020-12-07] MEDS: MORPHINE SULFATE 2 MG/ML VIAL IVPUSH PRN (18:12)
[2020-12-07] MEDS ORDERED: ACETAMINOPHEN 1000 MG/100 ML VIAL (NON FORMULARY) IVPB ONE (18:28)
[2020-12-07] MEDS ORDERED: MORPHINE SULFATE/0.9% NACL/PF 100 MG/100 ML BAG IVPB SCH (19:45)
[2020-12-07 20:57] VITALS: BP 48/31; PULSE 115; TEMP 100
== END 2020-12-07 23:46 | disposition expired | DRG 177 ==
LOC: JER 04:43 → JERBED 08:36 → J8W 13:48 → J4S 11-23 12:51 → JICU 11-29 09:19
PROVIDERS: ADMIT Internal Medicine; ATTEND Registered Nurse
PROC: XW033E5 Introduction of Remdesivir Anti-infective into Peripheral Vein, Percutaneous Approach, New Technology Group 5 (ICD-10-PCS; principal; 2020-11-21)
PROC: XW13325 Transfusion of Convalescent Plasma (Nonautologous) into Peripheral Vein, Percutaneous Approach, New Technology Group 5 (ICD-10-PCS; 2020-11-22)
PROC: XW033H5 Introduction of Tocilizumab into Peripheral Vein, Percutaneous Approach, New Technology Group 5 (ICD-10-PCS; 2020-11-24)
DX: U07.1 COVID-19 (principal); J12.82 Pneumonia due to coronavirus disease 2019; J80 Acute respiratory distress syndrome; E87.2 Acidosis; E87.1 Hypo-osmolality and hyponatremia; J93.83 Other pneumothorax; I48.91 Unspecified atrial fibrillation; D72.829 Elevated white blood cell count, unspecified; I46.9 Cardiac arrest, cause unspecified
CPT/HCPCS: 36415; 36430; 36600; 71045-TC-FY; 80048; 80053; 81003; 82248; 82550; 82553; 82728; 82803; 82962; 83605; 83615; 83735; 83880; 84100; 84484; 85025; 85027; 85379; 85610; 85730; 86140; 86480; 86704; 86706; 86707; 86708; 86709; 86850; 86900; 86901; 87040; 87086; 87186; 87340; 87522; 87804; 87899; 93005; 93010; 94660; 99285-25; C9399; C9803; J0131; J3262; P9017; U0003